=== PATIENT | female | born 1955 | race Caucasian/White ===

== ENCOUNTER → 2016-09-11 | Outpatient (CLI) | payer BC | LOC: MW.CHFP 07:56 | PROVIDERS: ATTEND Nurse Practitioner Family | DX: E78.00 Pure hypercholesterolemia, unspecified (principal) | CPT/HCPCS: 36415; 80061 ==

== ENCOUNTER 2017-05-05 08:07 | Day surgery (SDC) | payer BC, OTHER ==
[~2017-05-05 08:07] MED LIST: Lactated Ringers 1,000 ML IV SCH; Sodium Chloride 0.9% 10 ML Syringe FLUSH PRN; Sodium Chloride 0.9% 2.5 ML Syringe FLUSH PRN
[2017-05-05] MEDS ORDERED: Propofol 200 MG/20 ML SDV ONE (08:54)
[2017-05-05] MEDS ORDERED: Lidocaine 2% 5 ML SDV ONE (08:54)
--- NOTE | 2017-05-05 08:55 | PCM.PREANE ---
Preanesthetic Assessment - Anesthesia/Transfusion/Family Hx Anesthesia History: Prior Anesthesia Without Reaction Family History of Anesthesia Reaction: No Transfusion History: No Prior Transfusion(s) - Review of Systems General: No Symptoms Pulmonary: No Symptoms Cardiovascular: No Symptoms Gastrointestinal: No Symptoms Neurological: No Symptoms Other: Reports: None - Physical Assessment NPO Status Date: 05/04/17 O2 Sat by Pulse Oximetry: 95 Respiratory Rate: 16 Vital Signs: Last Vital Signs Temp 36.7 C 05/05/17 08:40 Pulse 89 05/05/17 08:40 Resp 16 05/05/17 08:40 BP 120/75 05/05/17 08:40 Pulse Ox 95 05/05/17 08:40 Height: 1.57 m Weight: 73.482 kg ASA Class: 2 Mental Status: Alert & Oriented x3 Airway Class: Mallampati = 2 Dentition: Reports: Normal Dentition ROM/Head Extension: Full Lungs: Clear to Auscultation, Normal Respiratory Effort Cardiovascular: Regular Rate, Regular Rhythm - Allergies Allergies/Adverse Reactions: Allergies Allergy/AdvReac Type Severity Reaction Status Date / Time bacitracin Allergy Rash Verified 05/03/17 07:48 cephalexin monohydrate Allergy Stomach Verified 05/03/17 07:48 [From Keflex] Ache neomycin Allergy Rash Verified 05/03/17 07:48 [From Neosporin ([id number])] polymyxin B Allergy Rash Verified 05/03/17 07:48 [From Neosporin ([id number])] - Anesthesia Plan Pre-Op Medication Ordered: None - Acknowledgements Anesthesia Type Planned: MAC Pt an Appropriate Candidate for the Planned Anesthesia: Yes Alternatives and Risks of Anesthesia Discussed w Pt/Guardian: Yes Pt/Guardian Understands and Agrees with Anesthesia Plan: Yes PreAnesthesia Questionnaire HEENT History: Reports: Other (See Below) Other HEENT History: wears glasses Cardiovascular History: Reports: High Cholesterol, Hypertension Genitourinary History: Reports: None SOCIAL SERVICE LIAISON History: Reports: Dermatologic History: Reports: Eczema - Past Surgical History Head Surgeries/Procedures: Reports: None HEENT Surgical History: Reports: Adenoidectomy, Tonsillectomy Female Surgical History: Reports: Breast Reduction - SUBSTANCE USE Smoking Status *Q: Never Smoker Recreational Drug Use History: No - HOME MEDS Home Medications: Home Meds Aspirin [Lo-Dose Aspirin EC] 81 mg PO DAILY 05/03/17 [History] Calcium Carbonate/Vitamin D3 [Calcium 250+D] 3 tab PO DAILY 05/03/17 [History] Cholecalciferol (Vitamin D3) [Vitamin D3] 1,000 unit PO ASDIRECTED 05/03/17 [ History] Colesevelam HCl [Welchol] 3 tab PO BID 05/03/17 [History] Diltiazem [Cardizem CD] 180 mg PO DAILY 05/03/17 [History] Fortical 1 spray SUZANNE ASDIRECTED 05/03/17 [History] Hydrochlorothiazide 25 mg PO DAILY 05/03/17 [History] Lisinopril 10 mg PO DAILY 05/03/17 [History] Niacin 500 mg PO DAILY 05/03/17 [History] [place]-3S/DHA/Epa/Fish Oil [Fish Oil Dr 1,000 mg Softgel] 1 tab PO DAILY [History] Potassium Chloride 10 meq PO DAILY 05/03/17 [History] Triamcinolone Acetonide [Triamcinolone Acetonide 0.1% Oint] 1 applic TOP ASDIRECTED PRN 05/03/17 [History] Ubidecarenone [Co Q-10] 100 mg PO DAILY 05/03/17 [History] Vitamin B Complex 1 tab PO DAILY 05/03/17 [History] - CURRENT (IN HOUSE) MEDS Current Meds: Current Medications Lactated Ringer's (Ringers, Lactated) 1,000 mls @ 125 mls/hr IV ASDIRECTED [facility] Last Admin: 05/05/17 08:37 Dose: 125 mls/hr Sodium Chloride (Saline Flush) 10 ml FLUSH ASDIRECTED PRN PRN Reason: Keep Vein Open Sodium Chloride (Saline Flush) 2.5 ml FLUSH ASDIRECTED PRN PRN Reason: Keep Vein Open Sodium Chloride (Saline Flush) 10 ml FLUSH ASDIRECTED PRN PRN Reason: Keep Vein Open Sodium Chloride (Saline Flush) 2.5 ml FLUSH ASDIRECTED PRN PRN Reason: Keep Vein Open
--- NOTE | 2017-05-05 10:49 | PCM.POSTAN ---
POST ANESTHESIA ASSESSMENT - MENTAL STATUS Mental Status: Alert, Oriented - RESPIRATORY Respiratory Status: Respiratory Rate WNL, Airway Patent, O2 Saturation Stable - CARDIOVASCULAR CV Status: Pulse Rate WNL, Blood Pressure Stable - GASTROINTESTINAL GI Status: No Symptoms - POST OP HYDRATION Hydration Status: Adequate & Stable
--- NOTE | 2017-05-05 10:50 | PCM48HPAN ---
Post Anesthesia Note - EVALUATION WITHIN 48HRS OF ANESTHETIC Vital Signs in Normal Range: Yes Patient Participated in Evaluation: Yes Respiratory Function Stable: Yes Airway Patent: Yes Cardiovascular Function Stable: Yes Hydration Status Stable: Yes Pain Control Satisfactory: Yes Nausea and Vomiting Control Satisfactory: Yes Mental Status Recovered: Yes
--- NOTE | 2017-05-05 10:50 | PCM.OPNOTE ---
- General Post-Op/Procedure Note Date of Surgery/Procedure: 05/05/17 Operative Procedure(s): Diagnostic colonoscopy Findings: Sigmoid colon polyp, grade 2 hemorrhoids Pre Op Diagnosis: +FOBT Post-Op Diagnosis: Grade 2 hemorrhoids, sigmoid colon polyp [place]est[place] [facility] [place]geon: Fariha Sauceda Condition: Good
--- NOTE | 2017-05-05 14:35 | OR ---
SURGEON: JULIÁN DILLARD MD DATE OF PROCEDURE: 05/05/2017 PREOPERATIVE DIAGNOSIS: Positive fecal occult blood test. POSTOPERATIVE DIAGNOSES: Grade 2 hemorrhoids, sigmoid colon polyp. PROCEDURE PERFORMED: Diagnostic colonoscopy. ANESTHESIA: MAC. INSTRUMENT USED: Olympus colonoscope. EXTENT OF EXAM: To the terminal ileum. PREPARATION: Good. LIMITATIONS: None. INDICATION FOR EXAMINATION: The patient is a 62-year-old female, who presented to my office with a positive fecal occult blood test. The decision was made to perform a diagnostic colonoscopy. We discussed the procedure, expected perioperative course, and risks including bleeding, infection, or perforation. The patient verbalized understanding and wishes to proceed. PROCEDURE IN DETAIL: The patient was brought to the endoscopy suite and placed in left lateral decubitus position. A time-out was completed verifying the patient's name, age, date of , allergies, and procedure to be performed. Monitored anesthesia care was induced and continuous oxygen was provided via nasal cannula throughout the procedure. After adequate sedation was achieved, a digital rectal exam was performed. The patient was found to have grade 2 hemorrhoids on exam. A well- lubricated colonoscope was then inserted in the rectum and advanced under direct visualization to the level of the cecum. The cecum was identified by both visual and anatomic landmarks. I was able to navigate my scope through the ileocecal valve and identified the terminal ileum. A photograph was taken of the terminal ileum as well as of the cecal cap. The scope was then fully withdrawn while examining the color, texture, anatomy, and integrity of the mucosa from the cecum to the anal canal. The patient was found to have one 2 mm sessile polyp at 40 cm in the sigmoid colon. This was removed using a cold biopsy forceps. The remainder of the colon appeared normal. The scope was brought into the rectum and retroflexed to allow visualization of the anal canal opening. Upon retroflexion, she was noted again to have a grade 2 hemorrhoids. There were no stigmata of recent bleeding. The scope was then straightened out and removed from the patient. The cecum to anus time was greater than 6 minutes. The patient tolerated the procedure well and was taken to the PACU in stable condition. Endoscopic diagnosis: 1) Sigmoid colon polyp 2) Grade 2 hemorrhoids Recommendations: F/u in clinic in 2 weeks [employer]BO POWER /[id number] MTDD
== END 2017-05-05 10:55 | disposition home or self-care (01) ==
LOC: MW.SDS 08:07
PROVIDERS: ATTEND Surgery
DX: K63.5 Polyp of colon (principal); K64.1 Second degree hemorrhoids; I10 Essential (primary) hypertension; E87.6 Hypokalemia; E78.00 Pure hypercholesterolemia, unspecified; Z79.82 Long term (current) use of aspirin; Z88.1 Allergy status to other antibiotic agents; Z88.8 Allergy status to other drugs, medicaments and biological substances; Z79.899 Other long term (current) drug therapy
CPT/HCPCS: 45380; J7120; 00810; 88305; J2704